=== PATIENT | female | born 1955 | race Caucasian/White ===

== ENCOUNTER 2018-06-18 13:25 | Inpatient (IN) | payer OTHER ==
[~2018-06-18] VITALS: Ht 180.3 cm; Wt 72.1 kg
[2018-06-18 13:26] VITALS: BP 117/76
[2018-06-18] MEDS ORDERED: TOPROL XL25 MG PO (13:28)
[2018-06-18] MEDS ORDERED: XANAX1 MG PO (13:28)
[2018-06-18 13:34] VITALS: BP 117/76
[2018-06-18 13:58] LABS: URINE BILIRUBIN NEGATIVE (Negative); URINE BLOOD NEGATIVE (Negative); URINE CLARITY CLEAR; URINE COLOR YELLOW; URINE GLUCOSE-RANDOM* NEGATIVE (Negative); URINE KETONES TRACE (Negative); URINE LEUKOCYTES-REFLEX 2+ (Negative); URINE NITRITE-REFLEX NEGATIVE (Negative); URINE PROTEIN (DIPSTICK) NEGATIVE (Negative); URINE SPECIFIC GRAVITY 1.015 (1.005-1.035); URINE UROBILINOGEN 0.2 E.U./dl (0.2-1.0)
[2018-06-18 14:04] LABS: ABSOLUTE NEUTROPHILS 8.7 thou/uL (1.4-8.2); BASOPHILS 0.6 % (0.0-2.0); EOSINOPHILS 0.2 % (0.0-3.0); HEMATOCRIT 32.2 % (37.0-47.0); HEMOGLOBIN 11.1 gm/dL (12.0-15.0); LYMPHOCYTES 10.8 % (24.0-44.0); MCH 32.6 pg (26.0-34.0); MCHC 34.5 g/dL (28.0-37.0); MCV 94.6 fL (80.0-100.0); MONOCYTES 6.1 % (1.0-8.0); PLATELET COUNT 258 thou/uL (150-400); POLYS 82.3 % (36.0-66.0); RDW 14.5 % (10.5-14.5); WBC 10.6 thou/uL (4.0-11.0)
[2018-06-18 14:07] LABS: AMP/METHAMP Negative (Negative); BARBITURATES Negative (Negative); BENZODIAZEPINES Negative (Negative); CASTS None Seen /LPF (None Seen); COCAINE Negative (Negative); CRYSTALS None Seen /LPF (None Seen); METHADONE Negative (Negative); OPIATES Negative (Negative); PCP Negative (Negative); SQUAMOUS 0-3 Few /LPF (0-3); URINE WBC-REFLEX 6-15 Few /HPF (0-5)
[2018-06-18 14:08] LABS: BACTERIA-REFLEX 1-9 Few /HPF (None Seen); URINE RBC 0-2 Rare /HPF (0-2)
[2018-06-18 14:13] LABS: CALCIUM 9.2 mg/dL (8.5-10.1); CREATININE 1.3 mg/dL (0.6-1.0)
[2018-06-18 15:38] VITALS: BP 118/84
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
[2018-06-18 20:53] VITALS: BP 120/69
--- NOTE | 2018-06-18 22:54 | NUR ---
ASSUMED CARE OF THE PT AT 191 PM. THE PT WAS SITTING IN THE DAYROOM WHEN THIS [employer] DEVELOPER CAME ON DUTY. THE PT WAS VERY TALKATIVE EARLIER IN THE SHIFT, SPEAKING WITH A LOUD VOICE. ONE OF THE OTHER PTS WENT INTO HER ROOM AND WOKE HER UP THIS NOC SHIFT. REMAINS ON 12 MINUTE CHECKS FOR HER SAFETY.
--- NOTE | 2018-06-19 04:09 | NUR ---
THE PT CAME OUT TO THE DESK, SAYING, "WHO ARE THESE PEOPLE?" WENT BACK TO TALK WITH THE PT, THE PT THINKS SHE IS ON AN AIRPLANE FLYING [facility]. EXPLAINED TO THE PT THAT SHE WAS HERE AT THIS HOSPITAL, WAS ABLE TO REDIRECT THE PT.
--- NOTE | 2018-06-19 06:43 | NUR ---
THE PT SLEPT 6 HOURS LAST NIGHT.
[2018-06-19 07:55] VITALS: BP 119/81
--- NOTE | 2018-06-19 07:59 | EKG ---
[address] [address] ELECTROCARDIOGRAM REPORT Name: HAKEEM ARMSTRONG Room #: 528B-B ADM IN M.R.#: [id number] ������������������ Admission: 06/18/18 ������������������ Attend Phys: Delbert Swain DO Discharge: ������������������ Date of : 51 Report #: [id number] ����������������������������������������������������������������� [id number] THIS REPORT FOR: //name// [facility] Test Date: 2018-06-18 Test Time: 19:28:39 Pat Name: HAKEEM ARMSTRONG Department: Room: [facility] Gender: F Information Director: Iwona STUART : 1955 Requested By: Delbert Swain Order Number: [id number] MD: Ahsan Shepherd Measurements Intervals Norris Rate: 103 P: 69 AZ: 131 QRS: 88 QRSD: 99 T: 32 QT: 347 QTc: 454 Interpretive Statements Sinus tachycardia Borderline right axis deviation No previous ECG available for comparison Electronically Signed On 06-19-2018 7:59:24 CDT by Ahsan Shepherd [email or web address] ��������������������������������������������� <ELECTRONICALLY SIGNED> ���������������������������������������� By: Ahsan Shepherd MD ��������������������������������������������� 06/19/18 0759 27 27 Ahsan Shepherd MD /ROYAL
--- NOTE | 2018-06-19 08:15 | NUR ---
[facility] motion pictures cartoonist Cherie Vale called this morning to inform that Emilia has a shoe parts caser, Camila [place] - [phone]. Patient behind in bills, no food and is behind in house payments.
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
--- NOTE | 2018-06-19 11:07 | NUR ---
ASSUMED PATIENT CARE AT 0715. PATIENT AWAKE IN ROOM, VERY HYPERACTIVE. C/O CANNOT FIND HER EYEGLASSES. NURSE ATTEMPTED TO FIND WITHOUT SUCCESS. WILL CONTINUE TO ASSIST PATIENT IN LOCATING. FLAT AFFECT, MOOD, HYPERACTIVE, BEHAVIOR ANXIOUS, INTURSIVE. VSS; CONTINUE TO MONITOR.
[2018-06-19 11:15] VITALS: BP 119/81
[2018-06-19] MEDS ORDERED: NEURONTIN 400400 M1 PO (12:54)
[2018-06-19] MEDS ORDERED: AMITRIPTYLINE H25 M2 PO (12:54)
[2018-06-19] MEDS ORDERED: PERCOCET PO (12:55)
[2018-06-19] MEDS ORDERED: LEVOTHYROXINE150 MCG PO (12:57)
[2018-06-19] MEDS ORDERED: FLEXERIL PO (12:59)
--- NOTE | 2018-06-19 17:06 | NUR ---
PATIENT DISPLAYED CONFUSION AT DINNER TABLE, EVIDENCED BY HER ASKING NURSE FOR SOME MILK. NURSE COMPLIED WITH REQUEST, OPENED MILK CONTAINER FOR PATIENT. PATIENT PROCEEDED TO POUR MILK ALL OVER HER MEAT. NURSE ASKED WHY SHE DID THAT AND PATIENT REPLIED "My mashed potatoes were too thick, so they needed some milk." Nurse reminded patient that meat had nothing to do with her potatoes. Continue to monitor.
[2018-06-19 19:34] VITALS: BP 157/78
--- NOTE | 2018-06-19 20:55 | NUR ---
Pt pacing halls, talking with staff and peers. Smiling fast hyperverbal conversation that is difficult to follow and does not connect as complete thoughts. At times patient is rhyming her words. Pt was compliant with medication and hs snack. Pt did take off boot for her ankle once in bed.
--- NOTE | 2018-06-20 04:50 | NUR ---
Pt awakened and her sentences are clear and able to be comprehended. She is wanting to know where to eat breakfast, where her car keys are and where she parked her cars, and will her sister Lorie visit. Pt redirected that she will be awakened around 0700 to attend breakfast and then her morning group. Also that she will be visited by the dr. Pt remains to have dishevled hair.
[2018-06-20 05:44] LABS: CALCIUM 9.5 mg/dL (8.5-10.1); POTASSIUM 3.9 mmol/L (3.5-5.1)
[2018-06-20 07:47] VITALS: BP 92/73
--- NOTE | 2018-06-20 10:54 | NUR ---
ASSUMED PATIENT CARE AT 0715. PATIENT REMAINS CONFUSED, MAKIING NON-SENSICAL STATEMENTS. AFFECT BLUNT, MOOD HYPERACTIVE, BEHAVIOR CONFUSED, NON-THREATENING. COMPLIANT WITH A.M. MEDS, WHOLE WITH WATER. CONTINUE TO MONITOR.
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
[2018-06-20 19:55] VITALS: BP 104/73
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
--- NOTE | 2018-06-20 22:54 | NUR ---
Pt found lying on floor again between bed and dresser with lights off, pt had nurse come into room with door shut and lights off to look out window, to see if anyone there. Pt reminded that she was safe and that rounding would continue. Pt asked about female peer yelling out and was supported regarding her concerns. Pt still declining to come and sit in day room. Discussed prn medication that might help pt not see hallucinations and pt agreed to take medication.
--- NOTE | 2018-06-20 23:32 | NUR ---
Pt continues to sleep on floor and does not want to go to lounge, declined pillow or blanket, pt answers staff questions calmly, no longer verbalizing hallucination concerns.
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
--- NOTE | 2018-06-21 02:34 | NUR ---
Pt in day room interacting with staff and male peer, she was asking if anyone had a gun. Pt redirected to not ask staff or coworkers for a gun because we are in a hospital and they are not allowed. She stated she did not know she was in a hospital.
--- NOTE | 2018-06-21 03:00 | NUR ---
Pt remains awake pacing in halls, looking out windows. Speach increased in speed and irritable tone, asking about how to pay for medications, where her cell phone is. Pt talking about plans on how to obtain her items so she can go home in the am.
--- NOTE | 2018-06-21 03:10 | NUR ---
Pt redirected out of 2 peers rooms. Pt is easiliy verbally redirected. Pt was taking her pillow and blanket to sleep on dayroom floor but did return to her room.
[2018-06-21 07:50] VITALS: BP 96/69
--- NOTE | 2018-06-21 11:52 | NUR ---
0700: Report from [facility] shift, care assumed. Ambulatory in toure, observed pt looking through trash, collecting items, carrying misc. items in arms, gait steady. Feeds self, appetite good, consumed 100% of meal. Takes pills whole w/o diifuclty. Pt oriented to name and place, observed wandering aimlessly and without purpose. Cooperative with staff and socializes well with other pts.
--- NOTE | 2018-06-21 16:15 | NUR ---
ARCHIE left two voicemail at 8:48am, and 4:15pm for Estephania howard case manger to contact her concerning pt discharge. ARCHIE provided contact information, and asked if she would return the call.
[2018-06-21 19:57] VITALS: BP 96/66
[2018-06-22 01:04] VITALS: BP 96/66
--- NOTE | 2018-06-22 02:37 | NUR ---
PT OUT WITH PEERS AT [facility]. ON THE EDGE OF THE GROUP AND ONLY INTERACTING WITH STAFF. ACTIVELY HALLUCINATING. WENT TO ROOM EARLY. ABLE TO ALLOW ASSESSMENT AND TOOK MEDS W/O PROBLEM. DENIED THAT SHE USED DRUGS IN ANY WAY. AFFECT BLUNTED AND DEPRESSED.
[2018-06-22 07:37] VITALS: BP 89/69
--- NOTE | 2018-06-22 09:15 | NUR ---
ASSUMED PATIENT CARE AT 0700. PATIENT OBSERVED UP AND VERY HYPERACTIVE, SHE REPORTEDLY WAS THROUGHOUT THE NIGHT. FLAT AFFECT, HYPERACTIVE, CONFUSED BEHAVIOR. ALSO HYPERACTEVE, LABILE MOOD, EVIDENCED BY HER CHANGE IN VERBALIZATION OF FREQUENT CHANGE IN BEHAVIORS. COMPLIANT WITH A.M. MEDICATIONS; HOWEVER, IMMEDIATELY BEGAN ASKING NURSE ABOUT A MEDICATION "THAT STARTS WITH A "P." NURSE CONFIRMED WITH PATIENT THAT SHE IS NOT PRESCRIBED WHATEVER THAT MEDICATION WHILE HERE. ALSO, AT FIRST, SHE WAS READY TO ATTEND GROUP. INSTEAD, PATIENT WALKED AROUND C/O ABOUT THE MEDICATION MAKING HER DIZZY AND COULD NOT ATTEND GROUP "BECAUSE I AM TOO SLEEPY." THIS NURSE HAD ASSISTED WITH STAND-BY TO HER ROOM/BED AT THAT TIME. HOWEVER, PATIENT WOULD NOT STAY IN BED AND GOT UP A FEW MINUTES LATER, AGAIN C/O ABOUT BEING DIZZY. PATIENT DID RETURN TO HER ROOM SHORTLY AFTER THAT, AND IS CURRENTLY LYING IN BED AWAKE AND RESTLESS.
--- NOTE | 2018-06-22 12:33 | NUR ---
Date of Admission: 06/18/18 Date of Activity Therapy Assessment:06/21/2018 Activity Goal:1 group per day Initial Goal:Pt able to identify, at least two, relaxation techniques to use during times of frustration. Weekly progress towards goal:On track Group participation level:Minimal Behaviors observed: Hyperverbal. Intrusive. Disruptive. Disorganized thought process. Focsued on meds. Some participation in group, but minimal. Plan: No change towards goal
[2018-06-22 19:44] VITALS: BP 99/60
--- NOTE | 2018-06-22 22:02 | NUR ---
Pt anxious upon arrival of shift, pacing halls, walking toure and looking into peers rooms. Pt asking about peers names and if they are sick. . Pts speech fast paced,clear with good eye contact. Pt discussed having racing thoughts about medication and gruops and wanting to go home,feeling anxious, stating she thinks her medications are not the right match yet. Discussed feeling there is a mean girl team of staff on other shifts. She stated she wants to talk with the dr and when will he arrive. . Prn provided. Pt complainted of l foot pain and prn provided. Pt requesting that Dr order her trazadone for sleep, since she has difficulty relaxing and not thinking. No verbalization of hallucinations in her room this evening. Pt continues to ask where her bone stimulator is and if the paramedics have it, she also said she was told she no longer needs to wear her black brace boot.
--- NOTE | 2018-06-23 03:00 | NUR ---
Pt awakened at 0300 and returned to bed.
[2018-06-23 08:00] VITALS: BP 89/64
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
[2018-06-23 10:15] VITALS: BP 105/72
[2018-06-23 20:05] VITALS: BP 125/84
[2018-06-23 20:51] LABS: HEMATOCRIT 32.4 % (37.0-47.0); MCH 32.9 pg (26.0-34.0); MCHC 33.9 g/dL (28.0-37.0); RBC 3.34 mil/uL (4.20-5.00); RDW 14.4 % (10.5-14.5); WBC 5.9 thou/uL (4.0-11.0)
[2018-06-23 23:04] VITALS: BP 125/84
--- NOTE | 2018-06-24 09:33 | HC ---
[facility] [place] [address] CONSULTATION Name: HAKEEM ARMSTRONG Room #: 528B-B ADM IN M.R.#: [id number] Admission: 06/18/18 ������������������ Attend Phys: Delbert Swain, DO Discharge: ������������������ Date of : 51 Report #: [id number] THIS REPORT FOR: //name// CC: Delbert Swain NO PCP INTRODUCTION: This is a 62-year-old white female who has been admitted to [facility] for affective bipolar disorder. I am asked to see her because she has had a history of left foot fractures and she is wearing a Cam walker. PAST MEDICAL HISTORY: A full look at chart had already been done. I am asked to just look at the left foot. The left foot shows minimal edema and no pain with palpation. I actually see her walking in the toure when I first meet her in her socks without any pain. She has normal neurovascular status. An x-ray show a fracture of the base of the second, third and fourth metatarsal with evidence of healing occurring. ASSESSMENT: The patient has fracture second through fourth metatarsals, left foot with healing occurring. PLAN: To wear a Cam walker. Normally to be nonweightbearing in a cast but looks like she is very comfortable in a barefoot already, so she must have adequate healing plus I am sure she could handle a cast right now. With the medication, she could fall, so for safety reason, we will keep her in a Cam walker and she will follow up with me in 2 weeks. I did talk to Dr. Swain about situation as well. ��������������������������������������������� <ELECTRONICALLY SIGNED> ���������������������������������������� By: Eliceo Luu DPM ��������������������������������������������� 06/24/18 0933 [id number] Eliceo Luu DPM /nt
[2018-06-24 15:02] VITALS: BP 125/84
--- NOTE | 2018-06-24 15:10 | NUR ---
ASSUMED CARE AT 0700 TODAY. SHE WAS OUT FOR MEALS, MEDICATIONS AND GROUPS. SHE WAS COMPLIANT WITH MEDICATIONS TODAY. SHE CONTINUES TO EAT ABOUT 50 PERCENT OF HER MEALS. SHE CONTINUES TO C/O OF NOT HAVING HER PARTIAL TEETH AND HER MOUTH BLEEDING WHEN SHE IS EATING. SHE SPENDS MUCH OF HER TIME IN BED WHEN NOT UP FOR GROUPS AND MEALS. HER SKIN TONE IS A BIT BETTER TODAY AND THERE IS SOME PINK TO HER SKIN TONE TODAY. SHE VERBALIZED NEEDING HER PHONE OUT OF THE SAFE (THERE IS NO PHONE IN THE SAFE)
[2018-06-24 20:15] VITALS: BP 116/76
--- NOTE | 2018-06-24 20:49 | NUR ---
Pt resting in bed upon beginning of shift. Compliant with medication and hs snack. Pt has hat for occult stool collection in room. 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 Pt has good eye contact, speech remains rushed, but clear, smiling. Pt is wearing foot boot. No complaints of pain.
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
[2018-06-25 07:52] VITALS: BP 96/66
--- NOTE | 2018-06-25 09:14 | NUR ---
0700: Report rec/ from noc shift, care assumed. Ambulatory in halls, gait steady. 0800: Pt reports feeling faint, assisted to sitting position, sitting B/P=92/62, standing B/P=86/56, HR 97. Pt states she believes that it is from constipation, bowel sounds present x4 quads. Assisted to via w/c for safety, pt educated about hydration and nurtrition, appetite is poor. A.M. Metoprolol held due to orthostatic hypotensive episode. Will cont. to monitor. 0900: Ambulating in halls, gait steady, denies dizziness or feeling faint, attending group, moderate participation.
[2018-06-25 20:08] VITALS: BP 120/80
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
[2018-06-26 08:30] VITALS: BP 81/58
--- NOTE | 2018-06-26 11:03 | NUR ---
1055: Stool specimen obtained and sent to lab for occult blood test.
--- NOTE | 2018-06-26 13:11 | NUR ---
ASSUMED PATIENT CARE AT 0700. PATIENT IN D.R., QUIETLY OBSERVING OTHER PATIENTS, WATING ON BREAKFAST. ATE SMALL PERCENTAGE OF BREAKFAST. ATTENDED R.T. GROUP, AND NURSES GROUP. FLAT AFFECT, BEHAVIORS--INTERACTED WELL DURING GROUPS. AFTER GROUPS, HOWEVER, BECAME UPSET ABOUT TELEPHONE NUMBERS FROM HER CELL PHONE. NURSE WILL ATTEMPT TO HELP HER.
[2018-06-26 19:32] VITALS: BP 108/77
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
--- NOTE | 2018-06-27 04:54 | NUR ---
Pt slept throughout the night.
[2018-06-27 07:28] VITALS: BP 106/72
[2018-06-27 10:55] VITALS: BP 109/72
--- NOTE | 2018-06-27 15:27 | NUR ---
PATIENT HAS BEEN UP AND OUT ON THE UNIT, AMBULATE WITH SLIGHTLY STEADY GAIT. PATIENT WAS CONCERNED ABOUT MOVING TO A DIFFERENT ROOM, DUE TO PEER NEXT ROOM YELLING OUT AND WHISTLING. PATIENT MOVED TO ROOM 518 BED B. PATIENT IS EATING MEALS AND DRINKING FLUID FAIRLY WELL. PATIENT DENIES SUICIDAL AND HOMOCIDAL IDEATION. DIET IS CHANGED FROM SOTF TO REGULAR. PATIENT PARTICIPATED IN ALL GROUP THERAPY TODAY. SHE DENIES DEPRESSION/ANXIETY. " I JUST WANT SOMEONE TO LISTEN TO ME TO GET ME OUT OF HERE". PATIENT RAMBLED ABOUT HER PROPERTY AT [facility], HER PURSE, AND MONEY. PATIENT REASSURED THAT IF SHE HAS MONEY HERE AT [facility], THAT IT IS PUT IN SAFE UNDER LOCK AND KEYS, AND WILL BE GIVEN TO HER WHEN SHE DISCHARGES. PATIENT VERBALIZES UNDERSTANDING, AND STOPPED TALKING ABOUT HER PROPERTY. NO SIGN OF ACUTE DISTRESS NOTED, WILL MONITOR FOR SAFETY.
[2018-06-27 20:14] VITALS: BP 105/74
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
[2018-06-28 07:10] VITALS: BP 91/61
--- NOTE | 2018-06-28 09:08 | NUR ---
PATIENT UO EARLY AND HAD BREAKFAST. SOMEWHAT ANXIOUS ABOUT MAKING PERSONNEL PHONE CALL - STILL CONCERNED WITH LOSING HOME AND UTILITIES. STATED HAD POOR SLEEP LAST EVENING DUE TO LOUD AND DISRUPTIVE PATIENT - MEDICATION COMPLIANT. NO HALLUCINATIONS STATED OR OBSERVED. SELF CARE - PARTICIPATED IN MORNING GROUP ACTIVITY. CALMER BEHAVIOR - MORE FOCUSED. MAKES NEEDS KNOWN TO STAFF.
--- NOTE | 2018-06-28 11:28 | NUR ---
Nutrition: Pt admitted with bipolar disorder with manic and psychotic features. Seen for LOS. Eats well, 50-100% of meals overall on regular diet. Reports no weight changes. Staff assists to order meals as desired. Low risk.
[2018-06-28] MEDS ORDERED: METOPROLOL SUCC25 M1 PO (12:16)
[2018-06-28] MEDS ORDERED: ZYPREXA 5 MG TAB5 M1 PO (12:17)
[2018-06-28] MEDS ORDERED: LITHIUM CARBON150 MG PO (12:18)
[2018-06-28] MEDS ORDERED: LITHIUM CARBON300 M3 PO (12:18)
[2018-06-28] MEDS ORDERED: SYNTHROID75 MCG PO (12:21)
[2018-06-28 12:52] VITALS: BP 91/61
--- NOTE | 2018-06-28 12:54 | NUR ---
Patient Name: HAKEEM ARMSTRONG Admission Date: 06/18/18 DISCHARGE PLAN: Pt will be discharge home on [address]. Care Assessment: Pt was assessed by Dr. Swain, and was diagnosed with Bipolar I, and Behavior Disturbance. Level II Assessment: None Transportation: Pt will be transported by [facility]. Special Instructions/Notes: Pt has appointment with [facility] on July 11, 2018 at 1:00pm. DISCHARGE TO FACILITY: Facility: Phone: Fax: Address: Contact Name: Phone: PCP: NONE Psychiatrist: [facility].
--- NOTE | 2018-06-28 13:02 | NUR ---
ARCHIE spoke with pt sister Shanthi who lives in another [place]. Pt stated that her sister has been on medication for years, and she has done drugs, and alcohol. Shanthi wanted to know how she can help her sister. SW discussed that the pt should have DPOA. SW mention that the should follow-up with outpatient services through [facility]. Shanthi that the pt other sister Esther will come in visit her once she is discharge. SW will follow-up with the pt upon discharge.
--- NOTE | 2018-06-28 14:00 | NUR ---
PATIENT DISCHARGED AT 1330 TO HOME. ESCORTED DOWN TO CAB BY DR. WAGGONER WITH [facility]. REVIEWED ALL DOCUMENTATION AND COPIES GIVEN. PATIENT GIVEN SUICIDE HOT LINE AND ALL POSSESSIONS SHE CAME IN WITH SIGNED AND TAKEN WITH HER. PRESCRIPTION FOR ZYPREXA ALSO INCLUDED WITH PAPERWORK. PATIENT FILLED OUT SURVEY AND COMPLETED AND HANDED BACK IN.
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
== END 2018-06-28 14:25 | disposition home or self-care (01) | DRG 885 ==
LOC: ER 13:25 → SBH 15:40
PROVIDERS: Emergency Medicine; Internal Medicine; ADMIT Psychiatry & Neurology Psychiatry
DX: F31.2 Bipolar disorder, current episode manic severe with psychotic features (principal); N39.0 Urinary tract infection, site not specified; N17.9 Acute kidney failure, unspecified; I10 Essential (primary) hypertension; Z60.2 Problems related to living alone; F12.90 Cannabis use, unspecified, uncomplicated; F03.90 Unspecified dementia, unspecified severity, without behavioral disturbance, psychotic disturbance, mood disturbance, and anxiety; Z79.899 Other long term (current) drug therapy; S92.325A Nondisplaced fracture of second metatarsal bone, left foot, initial encounter for closed fracture; S92.335A Nondisplaced fracture of third metatarsal bone, left foot, initial encounter for closed fracture; S92.345A Nondisplaced fracture of fourth metatarsal bone, left foot, initial encounter for closed fracture; X58.XXXA Exposure to other specified factors, initial encounter; Y93.89 Activity, other specified; Y92.89 Other specified places as the place of occurrence of the external cause; Y99.8 Other external cause status
CPT/HCPCS: 10880